=== PATIENT | female | born 2000 | race Caucasian/White ===

== ENCOUNTER 2022-02-12 14:22 | Emergency (ER) | payer BC ==
[~2022-02-12] VITALS: Ht 152.4 cm; Wt 73.5 kg
[2022-02-12 14:25] VITALS: BP_SYST 120
[2022-02-12] MEDS ORDERED: KETOROLAC TROMETHAMINE 60 MG/2 ML VIAL IM ONE (14:45)
[2022-02-12 15:39] LABS: BILIRUBIN,URINE NEGATIVE (NEGATIVE); BLOOD, URINE NEGATIVE (NEGATIVE); CLARITY/URINE CLEAR (CLEAR); COLOR,URINE YELLOW (YELLOW); GLUCOSE,URINE NEGATIVE (NEGATIVE); KETONES,URINE NEGATIVE (NEGATIVE); LEUKOCYTE ESTERASE ,URINE 1+ (NEGATIVE); NITRITE, URINE NEGATIVE (NEGATIVE); PROTEIN URINE NEGATIVE (NEGATIVE); UROBILINOGEN,URINE 0.2 (0.2-1.0)
[2022-02-12 15:51] LABS: BACTERIA,URINE FEW /HPF (None Seen); MUCUS,URINE None Seen /LPF (None Seen); RBC,URINE NONE SEEN /HPF (0-3)
[2022-02-12] MEDS ORDERED: SULFAMETHOXAZOLE/TRIMETHOPR DS 1 TABLET PO ONE (19:00)
[2022-02-12] MEDS ORDERED: PHENAZOPYRIDINE HCL 100 MG TABLET PO ONE (19:00)
[2022-02-12] MEDS ORDERED: PHENAZOPYRIDINE HCL 100 MG TABLET ONE (19:03)
[2022-02-12] MEDS ORDERED: PHEN-726 PO (19:20)
[2022-02-12] MEDS ORDERED: IBUP-1971 PO (19:20)
[2022-02-12] MEDS ORDERED: SULF1TAB48 PO (19:20)
[2022-02-12 19:42] VITALS: BP_SYST 118
== END 2022-02-12 19:42 | disposition home or self-care (01) ==
LOC: SED 14:22
DX: N39.0 Urinary tract infection, site not specified (principal); R10.2 Pelvic and perineal pain; N83.201 Unspecified ovarian cyst, right side; R35.0 Frequency of micturition; Z79.899 Other long term (current) drug therapy
CPT/HCPCS: 99284; 76856; 81000; 81025; 96372; J1885

== ENCOUNTER 2023-03-12 16:06 | Emergency (ER) | payer BC ==
[~2023-03-12] VITALS: Ht 152.4 cm; Wt 78.5 kg
[~2023-03-12 16:06] MED LIST: IBUP-1971 PO; PHEN-726 PO; SULF1TAB48 PO
[2023-03-12 16:08] VITALS: BP_SYST 138; PULSE 95; RESP 18; TEMP 97.4; O2SAT 97
[2023-03-12] MEDS ORDERED: EPINEPHRINE HCL/PF 1 MG/ML AMP IM ONE (16:30)
[2023-03-12] MEDS ORDERED: EPIN0.3P3 IM (17:31)
[2023-03-12 17:51] VITALS: RESP 20; TEMP 98.5; O2SAT 96
[2023-03-12 17:52] VITALS: BP_SYST 111; PULSE 97
== END 2023-03-12 17:52 | disposition home or self-care (01) ==
LOC: SED 16:06
DX: T78.02XA Anaphylactic reaction due to shellfish (crustaceans), initial encounter (principal); R22.0 Localized swelling, mass and lump, head; Z79.899 Other long term (current) drug therapy
CPT/HCPCS: 99283; 81025; 96372; J0171